=== PATIENT | female | born 1995 | race Two or more races ===

== ENCOUNTER 2023-05-27 20:56 | Emergency (ER) | payer MEDICAID, OTHER | END 2023-05-27 22:19 | disposition left against medical advice (07) | LOC: ER 20:56 | DX: T14.8XXA Other injury of unspecified body region, initial encounter (principal); Z53.21 Procedure and treatment not carried out due to patient leaving prior to being seen by health care provider; W54.0XXA Bitten by dog, initial encounter; Y93.89 Activity, other specified; Y92.89 Other specified places as the place of occurrence of the external cause; Y99.8 Other external cause status ==